=== PATIENT | male | born 1945 | race Caucasian/White ===

== ENCOUNTER → 2023-10-21 | Outpatient (REF) | payer MEDICARE, BC | LOC: M LABSMT 14:23 | PROVIDERS: ATTEND Urology | DX: R97.20 Elevated prostate specific antigen [PSA] (principal) ==

== ENCOUNTER → 2023-11-25 | Outpatient (REF) | payer MEDICARE, BC | LOC: M SMT 12:46 | PROVIDERS: ATTEND Urology | DX: R97.20 Elevated prostate specific antigen [PSA] (principal) ==